=== PATIENT | female | born 1975 | race Caucasian/White ===

== ENCOUNTER → 2020-11-29 | Outpatient (CLI) | payer BC ==
[~2020-11-29] MED LIST: CHOL500015 PO; FLUT16SP24 NS; IBUP200C8 PO; MULT-658 PO; OMEP-110 PO
[2020-11-29 15:35] LABS: BASOPHILS % (AUTO) 1 % (0-1); EOSINOPHILS % (AUTO) 2 % (1-7); LYMPHOCYTES % (AUTO) 21 % (22-44); MEAN CORPUSCULAR HEMOGLOBIN 27.3 pg (27.0-34.8); MEAN CORPUSCULAR HGB CONC 32.8 g/dL (32.4-35.8); MEAN PLATELET VOLUME 9.7 fL (7.4-10.4); MONOCYTES % (AUTO) 8 % (2-9); NEUTROPHILS % (AUTO) 68 % (42-75); PLATELET COUNT 284 x10^3/uL (130-400); RED BLOOD COUNT 4.94 x10^6/uL (3.82-5.3); RED CELL DISTRIBUTION WIDTH 13.5 % (9.6-15.2)
[2020-11-29 15:42] LABS: MICROSCOPIC NOT IND
[2020-11-29 15:43] LABS: ALANINE AMINOTRANSFERASE 21 U/L (12-78); ALBUMIN 3.8 g/dL (3.4-5.0); ANION GAP 1 mmol/L (5-15); CALCIUM 8.9 mg/dL (8.5-10.1); CHLORIDE 107 mmol/L (98-107); CREATININE 0.77 mg/dL (0.55-1.02)
[2020-11-29 15:48] LABS: ALKALINE PHOSPHATASE 73 U/L (45-117); BILIRUBIN,TOTAL 0.3 mg/dL (0.2-1.0); TOTAL PROTEIN 7.5 g/dL (6.4-8.2)
== END | disposition home or self-care (01) ==
LOC: STAR 14:28
PROVIDERS: ATTEND Obstetrics & Gynecology
DX: Z01.818 Encounter for other preprocedural examination (principal); N92.0 Excessive and frequent menstruation with regular cycle
CPT/HCPCS: 36415; 80053; 81003; 84702; 85025

== ENCOUNTER 2020-12-12 10:22 | Inpatient (IN) | payer BC ==
[~2020-12-12] VITALS: Ht 162.6 cm; Wt 64.0 kg
[2020-12-12 11:13] VITALS: BP 117/81
[2020-12-12] MEDS ORDERED: CHLORHEXIDINE 15 ML UDC ONE (11:19)
[2020-12-12 11:24] LABS: HCG UR SG 1.017 (1.003-1.030)
[2020-12-12] MEDS ORDERED: LACTATED RINGERS 1,000 ML IV SCH (11:30)
[2020-12-12] MEDS ORDERED: CHLORHEXIDINE 15 ML UDC PO ONE (11:30)
[2020-12-12] MEDS ORDERED: BUPIVACAINE/PF 0.25% ONE (12:29)
[2020-12-12] MEDS ORDERED: FLUORESCEIN SODIUM 500 MG/5 ML ONE (12:29)
[2020-12-12] MEDS ORDERED: DEXAMETHASONE 4 MG/ML, 1ML ONE (12:54)
[2020-12-12] MEDS ORDERED: ROCURONIUM 10MG/ML,5ML ONE (12:54)
[2020-12-12] MEDS ORDERED: ONDANSETRON 2MG/ML, 2ML ONE (12:54)
[2020-12-12] MEDS ORDERED: PROPOFOL 10 MG/ML, 50ML ONE ×2 (12:54)
[2020-12-12] MEDS ORDERED: CEFAZOLIN 1,000 MG ONE (12:54)
[2020-12-12] MEDS ORDERED: FENTANYL PF 250 MCG/5ML ONE (12:56)
[2020-12-12] MEDS ORDERED: MIDAZOLAM 1 MG/ML, 2ML ONE (12:56)
[2020-12-12] MEDS ORDERED: PROPOFOL 50 ML ONE (13:26)
[2020-12-12] MEDS ORDERED: ALBUTEROL SULFATE 2.5 MG/3 ML NPPB PRN (14:30)
[2020-12-12] MEDS ORDERED: HYDROmorphone 2 MG/ML, 1ML IVPush PRN (14:30)
[2020-12-12] MEDS ORDERED: FENTANYL PF 100 MCG/2ML IV PRN (14:30)
[2020-12-12] MEDS ORDERED: ACETAMINOPHEN 325 MG TABLET PO PRN (14:30)
[2020-12-12] MEDS ORDERED: MEPERIDINE/PF 25MG/0.5ML IVPush PRN (14:30)
[2020-12-12] MEDS ORDERED: PROMETHAZINE 25 MG/ML, 1ML IV PRN (14:30)
[2020-12-12] MEDS ORDERED: OXYcodone 5 MG/5 ML ORAL.SOL UDC PO PRN (14:30)
[2020-12-12] MEDS ORDERED: DIAZEPAM 5 MG/ML, 2ML IVPush PRN (14:30)
[2020-12-12] MEDS ORDERED: hydrALAzine 20 MG/ML, 1ML IV PRN (14:30)
[2020-12-12] MEDS ORDERED: KETOROLAC 30 MG/1 ML IV PRN (14:30)
[2020-12-12] MEDS ORDERED: LABETALOL 5MG/ML, 20ML IV PRN (14:30)
[2020-12-12] MEDS ORDERED: ONDANSETRON 2MG/ML, 2ML IVPush PRN (16:00)
[2020-12-12] MEDS ORDERED: morphine SULFATE 10 MG/ML, 1ML IVPush PRN (16:00)
[2020-12-12] MEDS ORDERED: PROMETHAZINE 25 MG/ML, 1ML ONE (16:19)
[2020-12-12] MEDS: OXYcodone/APAP 5/325MG TABLET PO PRN ×2 (19:25→20:01)
[2020-12-12 19:32] VITALS: BP 124/79
[2020-12-12] MEDS: DOCUSATE 100 MG CAPSULE PO SCH (20:36)
[2020-12-12] MEDS: LACTATED RINGERS 1,000 ML IV SCH (20:37)
[2020-12-12] MEDS: KETOROLAC 30 MG/1 ML IVPush PRN (23:05)
[2020-12-13] MEDS: CEFAZOLIN PMX 2GM/50ML 50 ML IVPB SCH ×2 (00:54→08:07)
[2020-12-13 01:23] VITALS: BP 97/62
[2020-12-13] MEDS: LACTATED RINGERS 1,000 ML IV SCH ×3 (04:30→20:30)
[2020-12-13 05:05] VITALS: BP 108/58
[2020-12-13 07:10] VITALS: BP 94/52
[2020-12-13] MEDS: DOCUSATE 100 MG CAPSULE PO SCH ×2 (08:07→21:47)
[2020-12-13] MEDS: KETOROLAC 30 MG/1 ML IVPush PRN ×2 (08:07→15:51)
[2020-12-13 14:00] VITALS: BP 112/71
[2020-12-13 20:49] VITALS: BP 114/73
[2020-12-14] MEDS: KETOROLAC 30 MG/1 ML IVPush PRN (00:51)
[2020-12-14 02:14] VITALS: BP 99/67
[2020-12-14] MEDS: LACTATED RINGERS 1,000 ML IV SCH (04:06)
[2020-12-14 07:41] VITALS: BP 111/66
[2020-12-14] MEDS ORDERED: OXYC1TAB14 PO (08:01)
[2020-12-14] MEDS ORDERED: DOCU-131 PO (08:01)
[2020-12-14] MEDS ORDERED: IBUP-1223 PO (09:24)
== END 2020-12-14 11:45 | disposition home or self-care (01) | DRG 743 ==
LOC: OUT 10:22 → ORIP 15:35 → 4NE 18:08
PROVIDERS: ADMIT Obstetrics & Gynecology; ATTEND Obstetrics & Gynecology
PROC: 0UJD4ZZ Inspection of Uterus and Cervix, Percutaneous Endoscopic Approach (ICD-10-PCS; 2020-12-12)
PROC: 0UT70ZZ Resection of Bilateral Fallopian Tubes, Open Approach (ICD-10-PCS; 2020-12-12)
PROC: 0UN90ZZ Release Uterus, Open Approach (ICD-10-PCS; 2020-12-12)
PROC: 0UT90ZZ Resection of Uterus, Open Approach (ICD-10-PCS; principal; 2020-12-12 12:30)
DX: N80.0 Endometriosis of uterus (principal); N92.0 Excessive and frequent menstruation with regular cycle; K66.0 Peritoneal adhesions (postprocedural) (postinfection); F32.9 Major depressive disorder, single episode, unspecified; N80.1 Endometriosis of ovary; N94.6 Dysmenorrhea, unspecified; Z88.1 Allergy status to other antibiotic agents; Z53.31 Laparoscopic surgical procedure converted to open procedure; Z91.010 Allergy to peanuts
CPT/HCPCS: 36415; 81025; 85014; 85018; 86850; 86900; 88307; G0378; J0690; J1100; J1885; J2250; J2405; J2550; J2704; J3010; J2270; J7120

== ENCOUNTER 2020-12-20 09:46 | Emergency (ER) | payer BC ==
[~2020-12-20] VITALS: Ht 162.6 cm; Wt 62.6 kg
[~2020-12-20 09:46] MED LIST changes: +DOCU-131 PO; +IBUP-1223 PO; +OXYC1TAB14 PO
--- NOTE | 2020-12-20 09:57 | NUR ---
mysql dba: EKG done in triage
[2020-12-20 12:00] LABS: BASOPHILS % (AUTO) 1 % (0-1); EOSINOPHILS % (AUTO) 1 % (1-7); LYMPHOCYTES % (AUTO) 10 % (22-44); MEAN CORPUSCULAR HGB CONC 33.1 g/dL (32.4-35.8); MEAN PLATELET VOLUME 8.9 fL (7.4-10.4); MONOCYTES % (AUTO) 7 % (2-9); NEUTROPHILS % (AUTO) 81 % (42-75); PLATELET COUNT 364 x10^3/uL (130-400); RED BLOOD COUNT 4.42 x10^6/uL (3.82-5.3); RED CELL DISTRIBUTION WIDTH 14.1 % (9.6-15.2)
[2020-12-20 12:29] LABS: ANION GAP 4 mmol/L (5-15); CALCIUM 9.3 mg/dL (8.5-10.1); CHLORIDE 104 mmol/L (98-107)
[2020-12-20 12:30] LABS: ALANINE AMINOTRANSFERASE 18 U/L (12-78); ALBUMIN 3.3 g/dL (3.4-5.0); ALKALINE PHOSPHATASE 81 U/L (45-117); BILIRUBIN,TOTAL 0.3 mg/dL (0.2-1.0); CREATININE 0.68 mg/dL (0.55-1.02); TOTAL PROTEIN 7.7 g/dL (6.4-8.2)
--- NOTE | 2020-12-20 12:31 | NUR ---
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
[2020-12-20] MEDS ORDERED: OMNIPAQUE 350 MG/ML, 75ML BOTTLE ONE (13:45)
--- NOTE | 2020-12-20 14:28 | NUR ---
PT BACK FROM CT
[2020-12-20 14:44] VITALS: BP 107/66
== END 2020-12-20 15:29 | disposition home or self-care (01) ==
LOC: ED 11:54
DX: R55 Syncope and collapse (principal); R42 Dizziness and giddiness; Z90.710 Acquired absence of both cervix and uterus
CPT/HCPCS: 36415; 71275; 80053; 85025; 85379; 93005; 99285; Q9967